=== PATIENT | male | born 1975 | race Caucasian/White ===

== ENCOUNTER 2016-07-23 20:51 | Inpatient (IN) | payer BC ==
[~2016-07-23] VITALS: Ht 180.3 cm; Wt 87.0 kg
[2016-07-23 21:40] LABS: EOSINOPHIL (%) 0.9 % (0-5); EOSINOPHIL COUNT 0.1 K/uL (0-0.3); HEMATOCRIT 34.5 % (38.0-50.0); IMMATURE GRANULOCYTE (%) 0.1 % (0.0-0.7); IMMATURE GRANULOCYTE COUNT 0.1 K/uL; LYMPHOCYTE COUNT 0.8 K/uL (1.0-2.8); MCHC 35.1 G/DL (30.0-36.0); MCV 88.5 FL (86-99); MEAN PLAT.VOLUME 8.7 uM^3 (9.0-12.4); MONOCYTE (%) 7.6 % (3-12); NEUTROPHIL (%) 84.9 % (45-76); NEUTROPHIL COUNT 10.8 K/uL (1.8-6.4); PLATELET COUNT 325 K/uL (156-360); RBC DIS.WIDTH-CV 12.4 % (11.8-14.6); RBC DIS.WIDTH-SD 39.4 % (39-53); WHITE BLOOD COUNT 12.8 K/uL (4.1-10.2)
[2016-07-23 21:49] LABS: CHLORIDE 93 mEq/L (99-109); SODIUM 131 mEq/L (136-147)
[2016-07-23 21:50] LABS: GLUCOSE 148 mg/dL (70-99)
[2016-07-23 21:52] LABS: ANION GAP 13 MEQ/L (2-14)
[2016-07-23 21:54] LABS: GFR ESTIMATE (CALCULATED) > 59 mL/min/
[2016-07-23 21:55] LABS: UREA NITROGEN (BUN) 6 mg/dL (9-23)
[2016-07-24 09:02] VITALS: BP 108/60
[2016-07-24 13:11] VITALS: BP 123/75
[2016-07-24 17:14] VITALS: BP 126/79
[2016-07-24 19:57] VITALS: BP 140/90
[2016-07-24 23:34] VITALS: BP 142/86
[2016-07-25] VITALS: BP 142/86
[2016-07-25 06:15] LABS: ANION GAP 8 MEQ/L (2-14); CHLORIDE 102 MEQ/L (99-109); GFR ESTIMATE (CALCULATED) > 59 mL/min/; POTASSIUM 3.4 MEQ/L (3.7-5.4); SAMPLE HEMOLYSIS CHECK 0; SAMPLE ICTERIC CHECK 0; SAMPLE LIPEMIA CHECK 0; SODIUM 136 MEQ/L (136-147); UREA NITROGEN (BUN) 9 mg/dL (9-23)
[2016-07-25 06:30] LABS: GLUCOSE 105 mg/dL (70-99)
[2016-07-25 06:43] LABS: HEMATOCRIT 34.1 % (38.0-50.0); MCH 30.4 PG (29.0-34.0); MCV 89.5 FL (86-99); MEAN PLAT.VOLUME 9.2 uM^3 (9.0-12.4); PLATELET COUNT 315 K/uL (156-360); RBC DIS.WIDTH-CV 12.6 % (11.8-14.6); RBC DIS.WIDTH-SD 40.6 % (39-53); RED BLOOD COUNT 3.81 M/uL (4.00-5.50)
[2016-07-25 06:45] LABS: WHITE BLOOD COUNT 8.7 K/uL (4.1-10.2)
[2016-07-25 06:59] LABS: Estimated Average Glucose 108 mg/dL (70-123); HEMOGLOBIN A1c (GLYCOHEMOGLOB) 5.4 % HGB (Below 5.7)
[2016-07-25 08:22] VITALS: BP 129/93
[2016-07-25 11:30] VITALS: BP 138/86
[2016-07-25 16:23] VITALS: BP 137/81
[2016-07-25 19:31] VITALS: BP 130/86
[2016-07-25 23:43] VITALS: BP 154/89
[2016-07-26 04:44] VITALS: BP 161/97
[2016-07-26 06:12] LABS: HEMATOCRIT 33.9 % (38.0-50.0); MCHC 34.2 G/DL (30.0-36.0); MCV 90.6 FL (86-99); MEAN PLAT.VOLUME 9.2 uM^3 (9.0-12.4); PLATELET COUNT 321 K/uL (156-360); RBC DIS.WIDTH-CV 12.7 % (11.8-14.6); RBC DIS.WIDTH-SD 42.2 % (39-53); RED BLOOD COUNT 3.74 M/uL (4.00-5.50)
[2016-07-26 06:16] LABS: ANION GAP 8 MEQ/L (2-14); CHLORIDE 104 MEQ/L (99-109); GFR ESTIMATE (CALCULATED) > 59 mL/min/; GLUCOSE 121 mg/dL (70-99); POTASSIUM 3.8 MEQ/L (3.7-5.4); SAMPLE HEMOLYSIS CHECK 0; SAMPLE ICTERIC CHECK 0; SAMPLE LIPEMIA CHECK 0; SODIUM 139 MEQ/L (136-147); UREA NITROGEN (BUN) 5 mg/dL (9-23)
[2016-07-26 07:25] VITALS: BP 156/89
[2016-07-26 11:30] VITALS: BP 155/95
[2016-07-26 16:03] VITALS: BP 164/97
[2016-07-26 23:29] VITALS: BP 146/76
[2016-07-27 08:09] VITALS: BP 144/74
[2016-07-27 16:00] VITALS: BP 135/88
[2016-07-27 23:26] VITALS: BP 164/97
[2016-07-28 07:35] VITALS: BP 145/83
[2016-07-28 16:12] VITALS: BP 145/94
[2016-07-28 23:36] VITALS: BP 142/81
[2016-07-29 00:14] VITALS: BP 142/77
[2016-07-29 08:05] VITALS: BP 119/63
[2016-07-29 12:00] VITALS: BP 131/69
[2016-07-29 16:00] VITALS: BP 137/85
[2016-07-30 08:17] VITALS: BP 158/85
[2016-07-30 17:34] VITALS: BP 173/93
[2016-07-30] MEDS ORDERED: COLACE100 MG PO (18:44)
[2016-07-30] MEDS ORDERED: HYDROCODON-ACE1 EAC7 PO (18:44)
== END 2016-07-30 20:40 | disposition home health service (06) | DRG 580 ==
LOC: EME 20:51 → 3EAST 07-24 02:32 → EDOF 07-24 02:32 → 3EAST 07-24 03:36
PROVIDERS: Physician Assistant; Thoracic Surgery (Cardiothoracic Vascular Surgery)
PROC: 0KBN0ZZ Excision of Right Hip Muscle, Open Approach (ICD-10-PCS; principal; 2016-07-24)
PROC: 0H98XZX Drainage of Buttock Skin, External Approach, Diagnostic (ICD-10-PCS; principal; 2016-07-24)
DX: L03.317 Cellulitis of buttock (principal); E87.1 Hypo-osmolality and hyponatremia; L02.31 Cutaneous abscess of buttock; F17.200 Nicotine dependence, unspecified, uncomplicated; E87.6 Hypokalemia; R73.9 Hyperglycemia, unspecified; B95.4 Other streptococcus as the cause of diseases classified elsewhere
CPT/HCPCS: 72170; 80048; 83036; 83605; 85025; 85027; 87040; 87070; 87075; 87076; 87185; 87205; 88305; 99281; 99285; J0696; J1100; J1170; J1644; J1885; J2250; J2405; J3010; J3370; J7030; J7050; J7120

== ENCOUNTER 2016-09-17 19:10 | Inpatient (IN) | payer BC ==
[~2016-09-17] VITALS: Ht 180.3 cm; Wt 77.5 kg
[~2016-09-17 19:10] MED LIST: COLACE100 MG PO; HYDROCODON-ACE1 EAC7 PO
[2016-09-17 20:30] LABS: EOSINOPHIL (%) 1.9 % (0-5); EOSINOPHIL COUNT 0.2 K/uL (0-0.3); HEMATOCRIT 36.7 % (38.0-50.0); IMMATURE GRANULOCYTE (%) 0.1 % (0.0-0.7); IMMATURE GRANULOCYTE COUNT 0.1 K/uL; LYMPHOCYTE COUNT 1.5 K/uL (1.0-2.8); MCH 29.3 PG (29.0-34.0); MCHC 34.6 G/DL (30.0-36.0); MCV 84.6 FL (86-99); MEAN PLAT.VOLUME 8.4 uM^3 (9.0-12.4); MONOCYTE (%) 6.6 % (3-12); MONOCYTE COUNT 0.7 K/uL (0-0.8); NEUTROPHIL (%) 76.2 % (45-76); NEUTROPHIL COUNT 7.5 K/uL (1.8-6.4); PLATELET COUNT 319 K/uL (156-360); RBC DIS.WIDTH-SD 42.2 % (39-53); RED BLOOD COUNT 4.34 M/uL (4.00-5.50); WHITE BLOOD COUNT 9.9 K/uL (4.1-10.2)
[2016-09-17 20:39] LABS: CHLORIDE 102 mEq/L (99-109); POTASSIUM 3.5 mEq/L (3.7-5.4); SODIUM 139 mEq/L (136-147)
[2016-09-17 20:41] LABS: GLUCOSE 107 mg/dL (70-99)
[2016-09-17 20:42] LABS: ANION GAP 11 MEQ/L (2-14)
[2016-09-17 20:44] LABS: GFR ESTIMATE (CALCULATED) > 59 mL/min/
[2016-09-17 20:45] LABS: UREA NITROGEN (BUN) 10 mg/dL (9-23)
[2016-09-18] MEDS ORDERED: XANAX0.25 MG PO (00:13)
[2016-09-18] MEDS ORDERED: BACTRIM,SEPT1 TABLET PO (00:14)
[2016-09-18] MEDS ORDERED: ADVIL,NUPRIN,M200 MG PO (00:14)
[2016-09-18 04:28] VITALS: BP 140/89
[2016-09-18 06:35] LABS: EOSINOPHIL COUNT 0.2 K/uL (0-0.3); HEMATOCRIT 37.8 % (38.0-50.0); IMMATURE GRANULOCYTE (%) 0.2 % (0.0-0.7); MCH 28.7 PG (29.0-34.0); MCHC 32.5 G/DL (30.0-36.0); MCV 88.3 FL (86-99); MONOCYTE (%) 6.5 % (3-12); MONOCYTE COUNT 0.7 K/uL (0-0.8); NEUTROPHIL (%) 81.2 % (45-76); NEUTROPHIL COUNT 8.1 K/uL (1.8-6.4); PLATELET COUNT 243 K/uL (156-360); RBC DIS.WIDTH-CV 14.7 % (11.8-14.6); RBC DIS.WIDTH-SD 46.3 % (39-53); RED BLOOD COUNT 4.28 M/uL (4.00-5.50)
[2016-09-18 07:11] LABS: ANION GAP 6 MEQ/L (2-14); CHLORIDE 104 MEQ/L (99-109); GFR ESTIMATE (CALCULATED) > 59 mL/min/; GLUCOSE 99 mg/dL (70-99); POTASSIUM 3.4 MEQ/L (3.7-5.4); SAMPLE HEMOLYSIS CHECK 0; SAMPLE ICTERIC CHECK 0; SAMPLE LIPEMIA CHECK 0; SODIUM 137 MEQ/L (136-147); UREA NITROGEN (BUN) 7 mg/dL (9-23)
[2016-09-18 07:42] VITALS: BP 149/88
[2016-09-18 15:05] VITALS: BP 132/91
[2016-09-19 00:34] VITALS: BP 144/91
[2016-09-19 04:26] LABS: AMPHETAMINES QUANT VALUE 0 NG/ML; BARBITUATES QUANT VALUE 0 NG/ML; BENZODIAZEPINES QUANT VALUE 0 NG/ML; BENZODIAZEPINES, URINE SCREEN Negative (200 ng/mL); MARIJUANA QUANT VALUE 0 NG/ML; PHENCYCLIDINE QUANT VALUE 0 NG/ML
[2016-09-19 07:08] LABS: EOSINOPHIL (%) 1.7 % (0-5); EOSINOPHIL COUNT 0.2 K/uL (0-0.3); HEMATOCRIT 34.3 % (38.0-50.0); IMMATURE GRANULOCYTE (%) 0.1 % (0.0-0.7); LYMPHOCYTE COUNT 0.8 K/uL (1.0-2.8); MCH 29.4 PG (29.0-34.0); MCHC 34.1 G/DL (30.0-36.0); MCV 86.2 FL (86-99); MONOCYTE (%) 7.1 % (3-12); MONOCYTE COUNT 0.6 K/uL (0-0.8); NEUTROPHIL (%) 81.6 % (45-76); NEUTROPHIL COUNT 7.2 K/uL (1.8-6.4); PLATELET COUNT 260 K/uL (156-360); RBC DIS.WIDTH-SD 43.7 % (39-53); RED BLOOD COUNT 3.98 M/uL (4.00-5.50); WHITE BLOOD COUNT 8.8 K/uL (4.1-10.2)
[2016-09-19 07:41] LABS: ANION GAP 7 MEQ/L (2-14); CHLORIDE 102 MEQ/L (99-109); GFR ESTIMATE (CALCULATED) > 59 mL/min/; GLUCOSE 93 mg/dL (70-99); SAMPLE HEMOLYSIS CHECK 0; SAMPLE ICTERIC CHECK 0; SAMPLE LIPEMIA CHECK 0; SODIUM 136 MEQ/L (136-147); UREA NITROGEN (BUN) 7 mg/dL (9-23)
[2016-09-19 07:45] VITALS: BP 138/83
[2016-09-19 07:48] LABS: POTASSIUM 4.3 MEQ/L (3.7-5.4)
[2016-09-19 10:18] LABS: HBSG INDEX 0.17
[2016-09-19 15:30] VITALS: BP 157/94
[2016-09-20 00:07] VITALS: BP 137/76
[2016-09-20 06:55] LABS: HEMATOCRIT 32.1 % (38.0-50.0); MCH 28.9 PG (29.0-34.0); MCHC 33.3 G/DL (30.0-36.0); MCV 86.8 FL (86-99); MEAN PLAT.VOLUME 8.6 uM^3 (9.0-12.4); PLATELET COUNT 266 K/uL (156-360); RBC DIS.WIDTH-CV 13.7 % (11.8-14.6); RBC DIS.WIDTH-SD 42.6 % (39-53); WHITE BLOOD COUNT 9.4 K/uL (4.1-10.2)
[2016-09-20 07:16] LABS: ANION GAP 6 MEQ/L (2-14); CHLORIDE 103 MEQ/L (99-109); GFR ESTIMATE (CALCULATED) > 59 mL/min/; GLUCOSE 121 mg/dL (70-99); POTASSIUM 3.6 MEQ/L (3.7-5.4); SAMPLE HEMOLYSIS CHECK 0; SAMPLE ICTERIC CHECK 0; SAMPLE LIPEMIA CHECK 0; SODIUM 137 MEQ/L (136-147); UREA NITROGEN (BUN) 6 mg/dL (9-23)
[2016-09-20 08:00] VITALS: BP 146/95
[2016-09-20 11:00] VITALS: BP 157/98
[2016-09-20] MEDS ORDERED: NICOTINE PATCH1 EAC1 TD (13:52)
[2016-09-20] MEDS ORDERED: OXYCODONE-APAP1 EACH PO (13:52)
[2016-09-20] MEDS ORDERED: GABAPENTIN300 MG PO (13:52)
[2016-09-20] MEDS ORDERED: BACTRIM,SEPT1 TABLET PO (13:53)
[2016-09-20 13:56] VITALS: BP 157/98
== END 2016-09-20 15:52 | disposition home or self-care (01) | DRG 603 ==
LOC: EME 19:10 → EDOF 09-18 03:37 → 5SOUTH 09-18 03:37
PROVIDERS: Internal Medicine; Internal Medicine Infectious Disease; Nurse Practitioner Adult Health; Thoracic Surgery (Cardiothoracic Vascular Surgery)
PROC: 0H9CXZZ Drainage of Left Upper Arm Skin, External Approach (ICD-10-PCS; principal; 2016-09-19)
DX: L02.414 Cutaneous abscess of left upper limb (principal); L03.114 Cellulitis of left upper limb; B96.89 Other specified bacterial agents as the cause of diseases classified elsewhere; E87.6 Hypokalemia; F41.9 Anxiety disorder, unspecified; G43.909 Migraine, unspecified, not intractable, without status migrainosus; F17.200 Nicotine dependence, unspecified, uncomplicated; Z71.6 Tobacco abuse counseling
CPT/HCPCS: 73201; 80048; 80202; 80306 90; 83605; 85025; 85027; 86611 90; 86803; 87070; 87075; 87076; 87205; 87340; 88305; 99281; 99285; J0295; J0330; J1170; J1885; J2250; J2270; J2405; J3010; J3370; J7030; J7050; J7120; S0028